=== PATIENT | male | born 1925 | race Caucasian/White ===

== ENCOUNTER 2017-05-25 18:31 | Inpatient (IN) ==
[2017-05-25] MEDS ORDERED: NS 1,000 ML IV ONE (18:57)
--- NOTE | 2017-05-25 19:00 | Emergency Department Report ---
General Adult HPI - General Chief complaint: Upper Respiratory Infection Stated complaint: cough, weakness Time Seen by Provider: 05/25/17 18:39 Source: patient Mode of arrival: ambulatory Limitations: no limitations - History of Present Illness HPI narrative: He has had some weakness and cough for the last 5 days. He lives at home in his own home. Is nephew came to check on him and decided to bring him to ER for evaluation. He had attempted to get up to the bathroom and was too weak to walk. He has not had any fever or chills that they know of. Has not had any vomiting or diarrhea. Sats on RA upon arrival are 88%. Was placed on O2 at 3 L per NC. Has history of head injury when he was a child and has some decreased mentation due to this. Onset (ago): day(s) (For the last 5 days) Severity: moderate Relieving factors: none Exacerbating factors: none Associated symptoms: cough, malaise, weakness Treatments prior to arrival: none - Related Data Home Medications Medication Instructions Recorded Confirmed No known Home medications [No home 05/25/17 05/25/17 meds] Allergies Allergy/AdvReac Type Severity Reaction Status Date / Time No Known Allergies Allergy Verified 05/25/17 18:50 Review of Systems Constitutional: Denies: fever, chills, weakness ENT: Denies: ear pain, throat pain, congestion Cardiovascular: Denies: chest pain, palpitations, dyspnea on exertion, edema Respiratory: Reports: cough. Denies: dyspnea, wheezes Gastrointestinal: Denies: abdominal pain, nausea, vomiting, diarrhea Integumentary: Denies: rash Neurological: Denies: headache, weakness, numbness, paresthesias PFSH Head injury when he was a child - Social History Smoking status: Never smoker Substance use type: does not use Alcohol intake frequency: does not drink Physical Exam - Limitations Limitations: no limitations - General General appearance: alert, in no apparent distress - Normal Exams: ENMT:: No facial trauma, nasal exudates, pharyngeal erythema, or exudates are noted Neck:: Full range of motion, without adenopathy, JVD, bruits or thyromegaly Chest/Respirations:: Clear all ced[place], with good airflow, and symmetry bilaterally Cardiovascular:: Regular rate and rhythm, without murmur or gallop, Pulses 2+ all extremities, capillary refill, <2 seconds all extremities Abdomen:: Bowel sounds positive, soft, non-tender, non-distended, no hepatosplenomegaly, masses or bruits noted Lymphatic:: No lymphadenopathy, or lymphedema noted Integumentary:: No rashes, hives, or bruising noted Neurological:: Patient is alert, and oriented Psychiatric:: Patient exhibits, appropriate attention, emotion and affect Course Vital Signs Temperature 99.8 F 05/25/17 18:36 Pulse Rate 90 05/25/17 18:36 Respiratory Rate 20 05/25/17 18:36 Blood Pressure 138/95 H 05/25/17 18:36 Pulse Oximetry 92 05/25/17 18:36 Temperature 102.2 F H 05/25/17 19:11 Pulse Rate 97 05/25/17 19:54 Respiratory Rate 18 05/25/17 20:18 Blood Pressure 108/77 05/25/17 19:54 Pulse Oximetry 88 L 05/25/17 20:18 Medical Decision Making - MDM Narrative Medical decision making narrative: He does have UTI and is influenza A positive. Is requiring O2 to maintain sats above 92%. Did discuss admission with Dr Anand and she will accept at this time. His chest xray is negative. Did give Rocephin 1G IV in ER. Lactate was noted at 2.0, procalcitonin is normal. WBC is normal as well. - Differential Diagnosis DD: pneumonia, UTI, sepsis, viral illness, dehydration - Lab Data Lab results reviewed: Yes: I reviewed the patient's lab results. Result diagrams: 05/25/17 19:25 05/25/17 19:26 Lab Results 05/25/17 05/25/17 05/25/17 Range/Units 19:25 19:25 19:26 WBC 8.8 (4.5-11.0) T/MM3 RBC 4.89 (4.50-5.90) M/MM3 Hgb 15.2 (13.5-17.5) GM/DL Hct 46.3 (41-53) % MCV 94.7 (80-100) UM3 MCH 31.1 (26-34) UUG MCHC 32.8 (31-37) GM/DL RDW Std Deviation 44.6 (36.9-50.2) FL Plt Count 162 (130-400) T/MM3 MPV 10.1 (9.4-12.4) UM3 Immature Gran % (Auto) 0.3 (0.0-0.5) % Neut % (Auto) 79.5 H (33-66) % Lymph % (Auto) 10.8 L (23-45) % Sutton % (Auto) 9.1 H (0-9.0) % Eos % (Auto) 0.0 (0-4) % Baso % (Auto) 0.3 (0-2) % Neut # (Auto) 7.0 (1.8-7.7) T/MM3 Lymph # (Auto) 1.0 (1-4.8) T/MM3 Sutton # (Auto) 0.8 (0-0.8) T/MM3 Eos # (Auto) 0.0 (0-0.5) T/MM3 Baso # (Auto) 0.0 (0-0.2) T/MM3 Abs Immat Gran (auto) 0.03 (0.00-0.03) T/MM3 Turbidity < 20 (0-20) Sodium 143 (134-144) MEQ/L Potassium 4.3 (3.6-5) MEQ/L Chloride 107 (98-107) MEQ/L Carbon Dioxide 23 (22-30) MEQ/L Anion Gap 13 (5-15) MEQ/L BUN 31.0 H (9-20) MG/DL Creatinine 1.4 (0.8-1.5) MG/DL GFR Calculation 48 BUN/Creatinine Ratio 22 (6-26) RATIO Glucose 105 (75-110) MG/DL Calculated Osmolality 282 H (261-280) MOSM/KG Calcium 8.9 (8.4-10.2) MG/DL Total Bilirubin 0.60 (0.20-1.30) MG/DL Icterus Index < 2 (0-7) AST 32 (17-59) U/L ALT 32 (21-72) U/L Alkaline Phosphatase 66 (38-126) U/L Troponin I 0.018 (0-0.12) ng/ml Total Protein 8.9 H (6.3-8.2) G/DL Albumin 4.4 (3.5-5.0) G/DL Globulin 4.5 H (2.4-3.6) G/DL Albumin/Globulin Ratio 1.0 L (1.1-2.2) RATIO Plasma Lactate 2.0 (0.6-2.2) MMOL/L Procalcitonin NG/ML Specimen Hemolysis < 15 (0-25) Ur Collection Type Urine, clean catch Urine Color Yellow (YELLOW) Urine Clarity Cloudy Urine pH 5.5 (5.0-8.0) Ur Specific [place] 1.025 (1.015-1.025) Urine Protein 1+ A (NEGATIVE) Urine Glucose (UA) Negative (NEGATIVE) Urine Ketones Trace A (NEGATIVE) Urine Occult Blood 3+ A (NEGATIVE) Urine Nitrate Positive A (NEGATIVE) Urine Bilirubin Negative (NEGATIVE) Urine Urobilinogen 0.2 (NORMAL) EU/DL Ur Leukocyte Esterase 3+ (NEGATIVE) Urine RBC 20-30 H (0-3) /HPF Urine WBC Tntc H (0-5) /HPF Urine WBC Clumps Moderate H Ur Squamous Epith Cells 20-50 Amorphous Sediment Many Urine Bacteria 2+ H (NEGATIVE) Granular Casts 5-10 Urine Mucus Present Ur Culture Indicated? Cult reflexed &setup Influenza Type A (PCR) (Negative) Influenza Type B (PCR) (Negative) 05/25/17 05/25/17 Range/Units 19:27 19:28 WBC (4.5-11.0) T/MM3 RBC (4.50-5.90) M/MM3 Hgb (13.5-17.5) GM/DL Hct (41-53) % MCV (80-100) UM3 MCH (26-34) UUG MCHC (31-37) GM/DL RDW Std Deviation (36.9-50.2) FL Plt Count (130-400) T/MM3 MPV (9.4-12.4) UM3 Immature Gran % (Auto) (0.0-0.5) % Neut % (Auto) (33-66) % Lymph % (Auto) (23-45) % Sutton % (Auto) (0-9.0) % Eos % (Auto) (0-4) % Baso % (Auto) (0-2) % Neut # (Auto) (1.8-7.7) T/MM3 Lymph # (Auto) (1-4.8) T/MM3 Sutton # (Auto) (0-0.8) T/MM3 Eos # (Auto) (0-0.5) T/MM3 Baso # (Auto) (0-0.2) T/MM3 Abs Immat Gran (auto) (0.00-0.03) T/MM3 Turbidity (0-20) Sodium (134-144) MEQ/L Potassium (3.6-5) MEQ/L Chloride (98-107) MEQ/L Carbon Dioxide (22-30) MEQ/L Anion Gap (5-15) MEQ/L BUN (9-20) MG/DL Creatinine (0.8-1.5) MG/DL GFR Calculation BUN/Creatinine Ratio (6-26) RATIO Glucose (75-110) MG/DL Calculated Osmolality (261-280) MOSM/KG Calcium (8.4-10.2) MG/DL Total Bilirubin (0.20-1.30) MG/DL Icterus Index (0-7) AST (17-59) U/L ALT (21-72) U/L Alkaline Phosphatase (38-126) U/L Troponin I (0-0.12) ng/ml Total Protein (6.3-8.2) G/DL Albumin (3.5-5.0) G/DL Globulin (2.4-3.6) G/DL Albumin/Globulin Ratio (1.1-2.2) RATIO Plasma Lactate (0.6-2.2) MMOL/L Procalcitonin 0.70 NG/ML Specimen Hemolysis (0-25) Ur Collection Type Urine Color (YELLOW) Urine Clarity Urine pH (5.0-8.0) Ur Specific [place] (1.015-1.025) Urine Protein (NEGATIVE) Urine Glucose (UA) (NEGATIVE) Urine Ketones (NEGATIVE) Urine Occult Blood (NEGATIVE) Urine Nitrate (NEGATIVE) Urine Bilirubin (NEGATIVE) Urine Urobilinogen (NORMAL) EU/DL Ur Leukocyte Esterase (NEGATIVE) Urine RBC (0-3) /HPF Urine WBC (0-5) /HPF Urine WBC Clumps Ur Squamous Epith Cells Amorphous Sediment Urine Bacteria (NEGATIVE) Granular Casts Urine Mucus Ur Culture Indicated? Influenza Type A (PCR) Positive A (Negative) Influenza Type B (PCR) Negative (Negative) - Radiology Data Radiology results reviewed: Yes: I reviewed the patient's radiology results. Chest xray: diffuse infiltrative pattern Disposition Clinical Impression: Influenza A Urinary tract infection Qualifiers: Urinary tract infection type: acute cystitis Hematuria presence: without hematuria Qualified Code(s): N30.00 - Acute cystitis without hematuria [place] 02 [place] [facility] [place] Condition: Stable Time of Disposition: 21:04 - Seen By: midlevel
[2017-05-25] MEDS: SALINE FLUSH 10ml SYRINGE IVF PRN ×2 (19:10→22:53)
[2017-05-25] MEDS ORDERED: ALBUTEROL/IPRATROPIUM 2.5mg-0.5mg/3ml NEB AEROSOL ONE (19:55)
[2017-05-25] MEDS ORDERED: CEFTRIAXONE (ER USE ONLY) 1 GM in NS 100 ML IV ONE (19:59)
[2017-05-25] MEDS ORDERED: ONDANSETRON 4 MG/2 ML INJECTION IVP PRN (21:19)
[2017-05-25] MEDS ORDERED: ACETAMINOPHEN 325 MG TABLET PO PRN (21:19)
[2017-05-25] MEDS ORDERED: HYDROCODONE/APAP 5mg/325mg TABLET PO PRN (21:19)
[2017-05-25] MEDS: NS 1,000 ML IV SCH (22:45)
--- NOTE | 2017-05-25 22:58 | History & Physical Report ---
History of Present Illness Date: 05/26/17 Chief complaint: Weakness and fall HPI: 88 yo M with PMH of MR from a head injury and lives alone presented to the ED with reports of weakness, fall and cough for 2 days. Patient's nephew is his primary career orientation teacher and found him on the floor today, he reports he was only on the floor for a few minutes. Patient denies fevers and chills at home, reports weakness and cough. He does not like to take medications and has not taken anything for his cough. He denies fever, chills, N/V and diarrhea. He was found to be hypoxic with O2 sats in the upper 80's upon arrival to the ED. He was placed on 3L NC. Patient was found to be influenza A positive and have a UTI. He was admitted to IV ABX and supportive care. Review of Systems All systems PM: 10-point ROS was reviewed, no additional remarkable complaints except PFSH Patient Stated Medical History Dementia Yes: Reported by nephew. DPOA - Social History Smoking status: Never smoker Medications Home Medications Medication Instructions Recorded Confirmed Type No known Home medications [No home 05/25/17 05/25/17 History meds] Allergies Allergy/AdvReac Type Severity Reaction Status Date / Time No Known Allergies Allergy Verified 05/25/17 18:50 Exam Vital Signs: Temperature 96.9 F 05/25/17 22:07 Pulse Rate 84 05/25/17 22:07 Respiratory Rate 16 05/25/17 22:07 Blood Pressure 109/75 05/25/17 22:07 Pulse Oximetry 92 05/25/17 22:07 Height/Weight/BMI: Height 1.83 m Weight 69.7 kg Body Mass Index 20.8 - Constitutional Present: no acute distress, cachectic - Routine Respiratory Exam Present: crackles (B/L lower lung field) - Routine Cardiovascular Exam Present: RRR. Absent: murmur - Routine Abdominal Exam Present: soft, normoactive bowel sounds, non distended. Absent: tenderness - Routine Skin Exam Present: dry, warm - Routine Neurological Exam Present: alert, CN II-XII intact, altered mental status (slow mentation) Results - Labs CBC & Chem 7: 05/26/17 04:32 05/26/17 04:32 Assessment and Plan (1) Influenza A Current visit: Yes Status: Acute (2) Urinary tract infection Current visit: Yes Status: Acute Assessment and Plan: Patient admitted for IV abx for his UTI and aggressive respiratory care. His lactic acid was 2.0 upon arrival, with no elevation in WBC's, negative procalcitonin. But he did have an elevated temp of 102 in the ED. Patient stated on Duonebs and mucinex DM for his cough. Urine CX sent. Tamiflu not started as patient is outside of the window. Will continue to monitor. Patient given ceftriaxone in the ED. will start 1gm Q24 hours for now. IVF NS 100cc/ hr. DVT Prophylaxis: SCD's Resuscitation Status: Full Code - Physician Narrative Physician: Christopher Garcia MD Narrative: 05/26/17 Jose I have independently interviewed and examined pt. Chart reviewed. Reviewed above note and concur. CC: Weakness, fall HPI: 89 y/o male presents to [facility] [place] ED secondary to weakness and fall. Has been feeling weak for about 2 days. With fall at home, this prompted ED visit. Has been having some cough recently. Not been having N/V or change in stools. Denies chest pain or pain with breathing. No palpitations. Appetite stable. In ED O2 saturation decreased at 88%. Positive for influenza A and urine showing evidence for UTI. Lactate elevated at 2 and initial temperature elevated at 102.2. With patient showing evidence for severe sepsis syndrome (Temp elevation and elevated lactate secondary to urinary source) coupled with his acute influenza, patient admitted to [facility] [place] for further treatment. 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 MEDS: none reported Shx: Resides in [facility]. Nephew caregiver. Nonsmoker. Ned[facility] PCP FHx: Noncontributory. Patient knows of no familial diseases. Knows his parents young (at age 65 and 66), but not sure why. ROS: as in HPI. 10 point ROS discussed with patient and negative (likely dementia limits) - does state he's 'doing good for his age.' Exam GEN: WDWNWM awake and alert HEENT: NC/AT PERRLA EOMI MMM Neck: supple, midline, no tracheal deviation CV: regular Lungs: decreased bilaterally; no distress on RA AB: soft nt/nd +BS EXT: clubbing of fingernails bilaterally. Radial pulses equal and normal. No lower ext edema. SCD in place NEURO: CN II-XII intact. No focal motor deficits Psych: awake alert appropriate. Not agitated or restless SKIN: warm and dry. 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 Rocephin for urinary coverage - check urine C/S. Tamiflu not initiated as patient thought to be outside of window of treatment based on when symptoms began. IVF of NS initiate for hydration due to severe sepsis. Supplemental O2 to maintain saturations. Obtain ECHO due to potential pulm edema on CXR. SCD for DVT prevention. Will need PT/OT to help increase strength and functional abilities. Monitor lab. Care to return to Dr Montenegro at time of discharger from [facility] [place]. Sepsis Assessment - Evaluation SIRS Criteria: temperature > 100.9 Severe Sepsis: lactate > 2.0 mg/dL Hospital Course Summary Disclaimer: The visit summary below is not to be considered part of the above Progress Note. 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 Rocephin for urinary coverage - check urine C/S. Tamiflu not initiated as patient thought to be outside of window of treatment based on when symptoms began. Mucinex and DuoNeb for pulmonary toilet and due to cough. IVF of NS initiate for hydration due to severe sepsis. Supplemental O2 to maintain saturations. SCD for DVT prevention. Monitor lab. Care to return to Dr Montenegro at time of discharger from [facility] [place]. 05/26/17 Urine showing early growth. O2 needs variable - on RA at time, but needing O2 at times; no respiratory distress. CXR report with possible edema - will check echo. Decrease IVF to 50cc/hr. Will need PT/OT to help increase strength and functional abilities.
[2017-05-25] MEDS: GUAIFENESIN/D-METHORPHAN 600mg/30mg TABLET PO SCH (23:32)
[2017-05-26] MEDS: ALBUTEROL/IPRATROPIUM 2.5mg-0.5mg/3ml NEB AEROSOL SCH ×4 (06:43→20:07)
[2017-05-26 06:45] VITALS: BMI 19.2
[2017-05-26] MEDS: GUAIFENESIN/D-METHORPHAN 600mg/30mg TABLET PO SCH ×2 (08:22→20:24)
[2017-05-26] MEDS: NS 1,000 ML IV SCH ×2 (08:22→11:52)
--- NOTE | 2017-05-26 08:37 | XRay Report ---
Indication: dyspnea PROCEDURE: XR chest 2V: Encounter: Initial Comparison: None. Findings: There is cardiomegaly and pulmonary vascular congestion with mild interstitial pulmonary edema possibly over estimated by the expiratory technique. There may be trace bilateral pleural effusions. Trachea is midline. No subdiaphragmatic free air. Impression: [id number] CHF possibly over estimated by the expiratory technique. .
[2017-05-26] MEDS ORDERED: BISACODYL 10 MG SUPPOSITORY RECTALLY PRN (11:41)
[2017-05-26] MEDS ORDERED: POLYETHYL GLYCOL 3350 17gm PACKET PO PRN (11:41)
[2017-05-26] MEDS: CEFTRIAXONE 1 G in NS 100 ML IV SCH (20:24)
[2017-05-27] MEDS: NS 1,000 ML IV SCH ×2 (01:28→21:34)
[2017-05-27] MEDS: ALBUTEROL/IPRATROPIUM 2.5mg-0.5mg/3ml NEB AEROSOL SCH ×4 (07:23→19:00)
[2017-05-27] MEDS: GUAIFENESIN/D-METHORPHAN 600mg/30mg TABLET PO SCH ×2 (08:26→20:43)
--- NOTE | 2017-05-27 15:09 | Progress Note ---
- Date 05/27/17 Subjective: Mr. Collins is seen today in follow up. He appears frail and ill. He reports that he is wanting to return home today. Does continue to appear SOA today. Persistent cough. Objective Vital signs: Temperature 97.2 F 05/27/17 08:31 Pulse Rate 75 05/27/17 08:31 Respiratory Rate 16 05/27/17 14:39 Blood Pressure 110/65 05/27/17 08:31 Pulse Oximetry 92 05/27/17 14:39 Height/Weight/BMI: Height 1.91 m Weight 72.5 kg Body Mass Index 19.2 - Constitutional Present: mild distress, thin, cooperative - Routine HEENT Exam Eye: Present: EOMI, PERRL ENT: Present: mucous membranes moist - Routine Respiratory Exam Present: wheezes (Scattered expiratory wheezes. ), diminished air movement. Absent: respiratory distress - Routine Cardiovascular Exam Present: RRR, S1, S2, no murmur - Routine Abdominal Exam Present: soft, normoactive bowel sounds, non distended, non tender - Routine Extremities Exam Present: no edema, non tender - Routine Musculoskeletal Exam Musculoskeletal: Present: moving extremities well - Routine Skin Exam Present: intact, dry, warm - Routine Neurological Exam Present: alert, moving all extremities - Routine Psychiatric Exam Present: cooperative Results - Labs CBC & Chem 7: 05/27/17 02:56 05/27/17 02:56 - Impressions CXR reviewed. Echo is pending. 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 Add IV Solu-Medrol, Continue DuoNeb. Add Pulmicort. No Tamiflu due to out of treatment window. Add acapella valve. PRN O2. Continue Ceftriaxone for UTI. Will continue gentle IVF due to sepsis. Repeat CXR in AM. Await EF. Consult PT. DC planning. May need rehab or SNU prior to dismissal. DVT Prophylaxis: SCD's Resuscitation Status: Full Code - Physician Narrative Physician: Christopher Garcia MD Narrative: Date: 05/27/17 Time: 1819 Have independently interviewed and examined pt. Chart reviewed. Case discussed with my CONTROL SYSTEMS SPECIALIST. Care plan developed with my supervision; agree with above. Doing okay this evening. Feels 'I'm doing okay for the age I am.' Breathing feels alright-not reporting SOA or congestion. Denies pain with breathing. Eating 'okay;' reports he tries not to 'overeat.' No ab pain or nausea. Did work with therapy today. Vitals: O2 needs variable during day - needing O2 at times, on RA at times. Lungs: decreased, shallow breathing; no distress CV regular MSE: awake alert, pleasant. Plan: Continue with Rocephin for urinary coverage - no organism isolated from culture. Neb treatment and Solu-Medrol added-watch for agitation with steroids. Encourage oral intake. Encourage activities and therapy. Monitor lab. ECHO pending-hope for report on Monday. Hospital Course Summary Disclaimer: The visit summary below is not to be considered part of the above Progress Note. 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 Rocephin for urinary coverage - check urine C/S. Tamiflu not initiated as patient thought to be outside of window of treatment based on when symptoms began. Mucinex and DuoNeb for pulmonary toilet and due to cough. IVF of NS initiate for hydration due to severe sepsis. Supplemental O2 to maintain saturations. SCD for DVT prevention. Monitor lab. Care to return to Dr Montenegro at time of discharger from [facility] [place] 05/26/17 Urine showing early growth. O2 needs variable - on RA at time, but needing O2 at times; no respiratory distress. CXR report with possible edema - will check echo. Decrease IVF to 50cc/hr. Will need PT/OT to help increase strength and functional abilities. 05/27/17 15:14 He remains wheezy, SOA. Add IV solumedrol, Continue duoneb. Add pulmicort. No Tamiflu due to out of treatment window. Add acapella valve. PRN O2. Continue Ceftriaxone for UTI. Will continue gentle IVF due to sepsis. Repeat CXR in AM. Await EF. Consult PT. DC planning. May need rehab or SNU prior to dismissal.
[2017-05-27] MEDS: METHYLPREDNISOLONE SOD SUCC 125mg/2ml INJECTION IVP SCH (17:09)
[2017-05-27] MEDS: BUDESONIDE INH.SOLN 0.5mg/2ml NEB AEROSOL SCH (19:00)
[2017-05-27] MEDS: CEFTRIAXONE 1 G in NS 100 ML IV SCH (20:42)
[2017-05-28] MEDS: METHYLPREDNISOLONE SOD SUCC 125mg/2ml INJECTION IVP SCH ×3 (00:05→17:23)
[2017-05-28] MEDS: SALINE FLUSH 10ml SYRINGE IVF PRN ×3 (00:18→21:01)
[2017-05-28] MEDS: ALBUTEROL/IPRATROPIUM 2.5mg-0.5mg/3ml NEB AEROSOL SCH ×4 (07:40→20:10)
[2017-05-28] MEDS: GUAIFENESIN/D-METHORPHAN 600mg/30mg TABLET PO SCH ×2 (08:53→20:58)
--- NOTE | 2017-05-28 11:43 | Progress Note ---
- Date 05/28/17 Subjective: Mr. Collins is seen today. He is alert, a bit tearful. Doesn't speak much, but I suspect he is a bit confused. He is on O2, but cannula is in eye- repositioned. He appears less SOA today. Chart is reviewed for collateral information. He does deny any pain. Objective Vital signs: Temperature 96.4 F L 05/28/17 07:00 Pulse Rate 51 L 05/28/17 07:00 Respiratory Rate 20 05/28/17 07:40 Blood Pressure 131/69 05/28/17 07:00 Pulse Oximetry 90 05/28/17 07:40 Height/Weight/BMI: Height 1.91 m Weight 72.2 kg Body Mass Index 19.2 - Constitutional Present: no acute distress, thin - Routine HEENT Exam Head: Present: normocephalic, atraumatic Eye: Present: EOMI, PERRL ENT: Present: mucous membranes moist - Routine Respiratory Exam Present: decreased breath sounds, wheezes (faint expiratory), diminished air movement - Routine Cardiovascular Exam Present: RRR, S1, S2, no murmur - Routine Abdominal Exam Present: soft, normoactive bowel sounds, non distended, non tender - Routine Extremities Exam Present: no edema, non tender - Routine Skin Exam Present: intact, dry, warm - Routine Neurological Exam Present: alert, moving all extremities - Routine Psychiatric Exam Present: cooperative Comments: A bit withdrawn, quiet. Results - Labs CBC & Chem 7: 05/28/17 04:18 05/28/17 04:18 - Imaging and Cardiology Chest x-ray Status: image reviewed by me Additional comments: Possible early right infiltrate. Atelectasis. Assessment and Plan (1) Influenza A Current visit: Yes Status: Acute (2) Urinary tract infection Current visit: Yes Status: Acute Assessment and Plan: Assessment: Severe sepsis - temp elevation, HR >90 in ED, elevated lactate UTI Influenza type A Acute hypoxic respiratory insufficiency Possible pulmonary edema Generalized weakness Fall without randall injury MR secondary to head injury Dementia Plan: 05/28/17 Wheezing, SOA is improving. Continue IV Solu-Medrol, DuoNeb, Pulmicort. No Tamiflu due to out of treatment window. Encourage acapella valve. PRN O2. Continue Ceftriaxone for UTI, possible early infiltrate. Some mild bandemia today, may be due to addition of steroids. Will continue gentle IVF due to sepsis. CXR reviewed. Echo is pending. Consult PT. DC planning. May need rehab or SNU prior to dismissal. [place] need more assistance. Difficult to determine mentation as he is very quiet. Will order OT ENOC. DVT Prophylaxis: SCD's Resuscitation Status: Full Code - Time spent with patient Time with patient PN: 25 minutes - Physician Narrative Physician: Christopher Garcia MD Narrative: Date: 05/28/17 Time: 1348 Have independently interviewed and examined pt. Chart reviewed. Case discussed with my SOCIAL WORKER DELINQUENCY PREVENTION. Care plan developed with my supervision; agree with above. Doing okay today. Breathing well-does have occasional cough. Not having pain with breathing. Eating well. Nurses charting stool output. No f/c. Lungs: decreased, upper airway noises. No respiratory distress CV: regular MSE : awake alert, pleasant to visit with Plan: Will continue Rocephin for antimicrobial coverage. Can d/c IVF as taking oral in well. Encourage activities. Likely able to discharge soon. Hospital Course Summary Disclaimer: The visit summary below is not to be considered part of the above Progress Note. 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 Rocephin for urinary coverage - check urine C/S. Tamiflu not initiated as patient thought to be outside of window of treatment based on when symptoms began. Mucinex and DuoNeb for pulmonary toilet and due to cough. IVF of NS initiate for hydration due to severe sepsis. Supplemental O2 to maintain saturations. SCD for DVT prevention. Monitor lab. Care to return to Dr Montenegro at time of discharger from [facility] [place]. 05/26/17 Urine showing early growth. O2 needs variable - on RA at time, but needing O2 at times; no respiratory distress. CXR report with possible edema - will check echo. Decrease IVF to 50cc/hr. Will need PT/OT to help increase strength and functional abilities. 05/27/17 15:14 He remains wheezy, SOA. Add IV solumedrol, Continue duoneb. Add pulmicort. No Tamiflu due to out of treatment window. Add acapella valve. PRN O2. Continue Ceftriaxone for UTI. Will continue gentle IVF due to sepsis. Repeat CXR in AM. Await EF. Consult PT. DC planning. May need rehab or SNU prior to dismissal. 05/28/17 11:44 05/28/17 Wheezing, SOA is improving. Continue IV Solu-Medrol, DuoNeb, Pulmicort. No Tamiflu due to out of treatment window. Encourage acapella valve. PRN O2. Continue Ceftriaxone for UTI, possible early infiltrate. Some mild bandemia today, may be due to addition of steroids. Will continue gentle IVF due to sepsis. CXR reviewed. Echo is pending. Consult PT. DC planning. May need rehab or SNU prior to dismissal. [place] may need more assistance. Difficult to determine mentation as he is very quiet. Will order OT ENOC.
[2017-05-28] MEDS: BUDESONIDE INH.SOLN 0.5mg/2ml NEB AEROSOL SCH ×2 (12:33→20:10)
[2017-05-28] MEDS: NS 1,000 ML IV SCH (14:00)
--- NOTE | 2017-05-28 15:29 | XRay Report ---
INDICATION: SOA, cough PROCEDURE: CHEST 2-VIEWS UPRIGHT (PA & LAT) Encounter: Initial COMPARISON: May 25, 2017 FINDINGS: Hazy airspace disease in the right lower lobe. Remaining lung cedeno are grossly clear. No pneumothorax. Trace right pleural effusion. Heart size and the stomach contours are stable with a tortuous thoracic aorta ectatic. Pulmonary vascularity appears normal. Impression: Right basilar airspace disease could be due to atelectasis, pneumonia or aspiration. .
[2017-05-28] MEDS: CEFTRIAXONE 1 G in NS 100 ML IV SCH (20:17)
[2017-05-29] MEDS: METHYLPREDNISOLONE SOD SUCC 125mg/2ml INJECTION IVP SCH ×3 (00:33→18:50)
[2017-05-29] MEDS: ALBUTEROL/IPRATROPIUM 2.5mg-0.5mg/3ml NEB AEROSOL SCH ×3 (07:11→17:14)
[2017-05-29] MEDS: BUDESONIDE INH.SOLN 0.5mg/2ml NEB AEROSOL SCH (07:11)
[2017-05-29 07:53] VITALS: PULSE 66
[2017-05-29] MEDS: GUAIFENESIN/D-METHORPHAN 600mg/30mg TABLET PO SCH (08:05)
--- NOTE | 2017-05-29 11:40 | Progress Note ---
- Date 05/29/17 Subjective: Mr Collins is seen today in follow up. He states that he is feeling better. He continued on room air without respiratory distress. He denies having pain or GI complaints. Objective Vital signs: Temperature 96.7 F L 05/29/17 07:52 Pulse Rate 66 05/29/17 07:52 Respiratory Rate 18 05/29/17 07:52 Blood Pressure 133/87 05/29/17 07:52 Pulse Oximetry 92 05/29/17 07:52 Height/Weight/BMI: Height 1.91 m Weight 72.8 kg Body Mass Index 19.2 - Constitutional Present: no acute distress, well nourished, well developed - Routine HEENT Exam Eye: Present: EOMI ENT: Present: mucous membranes moist, dentition normal - Routine Respiratory Exam Present: CTA bilaterally. Absent: wheezes - Routine Cardiovascular Exam Present: RRR, S1, S2. Absent: murmur - Routine Abdominal Exam Present: soft, normoactive bowel sounds, non distended. Absent: tenderness - Routine Extremities Exam Present: normal capillary refill - Routine Back/Spine/Pelvis Exam Back/Spine: Present: full ROM - Routine Skin Exam Present: dry, warm - Routine Neurological Exam Present: alert, oriented X3, CN II-XII intact - Routine Lymphatic Exam Lymphatic: Absent: adenopathy - Routine Psychiatric Exam Present: normal affect Results - Labs CBC & Chem 7: 05/28/17 04:18 05/28/17 04:18 Assessment and Plan (1) Influenza A Current visit: Yes Status: Acute (2) Urinary tract infection Current visit: Yes Status: Acute Assessment and Plan: Assessment: Severe sepsis - temp elevation, HR >90 in ED, elevated lactate UTI Influenza type A Acute hypoxic respiratory insufficiency Possible pulmonary edema Generalized weakness Fall without randall injury MR secondary to head injury Dementia Plan: 05/29 Breathing improved. Continue IV Solu-Medrol, DuoNeb, Pulmicort. Continue Rocephin as urine culture does show mixed avelina. Overall improving. Consult placed for PT and OT to evaluate strength and safety. Patient would like to return home or he is independent with assistance from his DPOA, nephew Narciso Hopeful discharge in the near future DVT Prophylaxis: SCD's Resuscitation Status: Full Code - Physician Narrative Physician: Christopher Garcia MD Narrative: Date: 05/29/17 Time: 1500 I have independently interviewed and examined pt prior to discharge. Chart reviewed. Case discussed with CM and my OFFICE COMMUNICATION PROFESSOR. Care plan developed with my supervision; agree with above. Doing well today. Sitting up in chair. No f/c. Eating and drinking well. No ab pain or nausea. Urinating well. Breathing doing well-not feeling SOA or congested, no pain with breathing or cough. Lungs: decreased bilaterally CV: regular AB: soft nt/nd EXT: no edema MSE: awake alert appropriate Plan: With clinical and physical improvement, can discharge to home. Will have home health to follow. ECHO pending-can be following up by Dr Montenegro in clinic. See orders for discharge details. Hospital Course Summary Disclaimer: The visit summary below is not to be considered part of the above Progress Note. 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 Rocephin for urinary coverage - check urine C/S. Tamiflu not initiated as patient thought to be outside of window of treatment based on when symptoms began. Mucinex and DuoNeb for pulmonary toilet and due to cough. IVF of NS initiate for hydration due to severe sepsis. Supplemental O2 to maintain saturations. SCD for DVT prevention. Monitor lab. Care to return to Dr Montenegro at time of discharger from [facility] [place] 05/26/17 Urine showing early growth. O2 needs variable - on RA at time, but needing O2 at times; no respiratory distress. CXR report with possible edema - will check echo. Decrease IVF to 50cc/hr. Will need PT/OT to help increase strength and functional abilities. 05/27/17 15:14 He remains wheezy, SOA. Add IV solumedrol, Continue duoneb. Add pulmicort. No Tamiflu due to out of treatment window. Add acapella valve. PRN O2. Continue Ceftriaxone for UTI. Will continue gentle IVF due to sepsis. Repeat CXR in AM. Await EF. Consult PT. DC planning. May need rehab or SNU prior to dismissal. 05/28/17 11:44 05/28/17 Wheezing, SOA is improving. Continue IV Solu-Medrol, DuoNeb, Pulmicort. No Tamiflu due to out of treatment window. Encourage acapella valve. PRN O2. Continue Ceftriaxone for UTI, possible early infiltrate. Some mild bandemia today, may be due to addition of steroids. Will continue gentle IVF due to sepsis. CXR reviewed. Echo is pending. Consult PT. DC planning. May need rehab or SNU prior to dismissal. [place]- may need more assistance. Difficult to determine mentation as he is very quiet. Will order OT ENOC. Plan: 05/29 Breathing improved. Continue IV Solu-Medrol, DuoNeb, Pulmicort. Continue Rocephin as urine culture does show mixed avelina. Overall improving. Consult placed for PT and OT to evaluate strength and safety. Patient would like to return home or he is independent with assistance from his EMILI, esthela Stuart Hopeful discharge in the near future
--- NOTE | 2017-05-29 14:12 | Discharge Summary ---
Discharge Information Date of admission: 05/25/17 22:02 Anticipated date of discharge: 05/29/17 Attending Physician: Christopher Garcia MD Primary care physician: Flaquito Montenegro DO Consults: None - Discharge Diagnosis (1) Influenza A Status: Acute (2) Urinary tract infection Status: Acute Severe sepsis - temp elevation, HR >90 in ED, elevated lactate UTI- resolved- was contamination on urine culture Influenza type A Acute hypoxic respiratory insufficiency Possible pulmonary edema Generalized weakness Fall without randall injury MR secondary to head injury Dementia - Procedures Procedures: None - Laboratory Labs: 05/28/17 04:18 05/28/17 04:18 - Microbiology Microbiology 05/25/17 19:31 Peripheral/Iv Start Blood Culture - Preliminary No Growth After 3 Days 05/25/17 19:27 Peripheral/Iv Start Blood Culture - Preliminary No Growth After 3 Days 05/25/17 19:25 Urine, Voided (Cc/notcc) Urine Culture - Final Mixed Bacterial Avelina Present -No further testing will be performed - Radiology Radiology: 05/25/17-chest [id number]: [id number] CHF possibly over estimated by the expiratory technique. 05/28/17-chest [id number]: Right basilar airspace disease could be due to atelectasis, pneumonia or aspiration. Echocardiogram-pending - Pathology None History of Present Illness HPI: 88 yo M with PMH of MR from a head injury and lives alone presented to the ED with reports of weakness, fall and cough for 2 days. Patient's nephew is his primary rn transitional care and found him on the floor today, he reports he was only on the floor for a few minutes. Patient denies fevers and chills at home, reports weakness and cough. He does not like to take medications and has not taken anything for his cough. He denies fever, chills, N/V and diarrhea. He was found to be hypoxic with O2 sats in the upper 80's upon arrival to the ED. He was placed on 3L NC. Patient was found to be influenza A positive and have a UTI. He was admitted to IV ABX and supportive care. Objective Vital signs: Temperature 96.7 F L 05/29/17 07:52 Pulse Rate 66 05/29/17 07:52 Respiratory Rate 18 05/29/17 07:52 Blood Pressure 133/87 05/29/17 07:52 Pulse Oximetry 92 05/29/17 07:52 Height/Weight/BMI: Height 1.91 m Weight 72.8 kg Body Mass Index 19.2 - Constitutional Present: no acute distress, well nourished, well developed - Routine HEENT Exam Eye: Present: EOMI ENT: Present: mucous membranes moist, dentition normal - Routine Respiratory Exam Present: diminished air movement (bilateral bases). Absent: wheezes - Routine Cardiovascular Exam Present: RRR, S1, S2. Absent: murmur - Routine Abdominal Exam Present: soft, normoactive bowel sounds, non distended. Absent: tenderness - Routine Extremities Exam Present: full ROM - Routine Skin Exam Present: intact, dry, warm - Routine Neurological Exam Present: alert, oriented X3, CN II-XII intact - Routine Lymphatic Exam Lymphatic: Absent: adenopathy - Routine Psychiatric Exam Present: normal affect, cooperative Hospital Course This is a general summary of the patient's hospital course. For more details refer to the complete medical record. Hospital course: 05/25/17 Assessment Severe sepsis - temp elevation, HR>90 in ED, elevated lactate UTI Influenza type A Acute hypoxic respiratory insufficiency Possible pulmonary edema Generalized weakness Fall without randall injury MR secondary to head injury Dementia Plan Inpatient admission for treatment of severe sepsis - anticipate greater than 2 midnights of care needed. Rocephin for urinary coverage - check urine C/S. Tamiflu not initiated as patient thought to be outside of window of treatment based on when symptoms began. Mucinex and DuoNeb for pulmonary toilet and due to cough. IVF of NS initiate for hydration due to severe sepsis. Supplemental O2 to maintain saturations. SCD for DVT prevention. Monitor lab. Care to return to Dr Montenegro at time of discharger from [facility] [place]. 05/26/17 Urine showing early growth. O2 needs variable - on RA at time, but needing O2 at times; no respiratory distress. CXR report with possible edema - will check echo. Decrease IVF to 50cc/hr. Will need PT/OT to help increase strength and functional abilities. 05/27/17 15:14 He remains wheezy, SOA. Add IV solumedrol, Continue duoneb. Add pulmicort. No Tamiflu due to out of treatment window. Add acapella valve. PRN O2. Continue Ceftriaxone for UTI. Will continue gentle IVF due to sepsis. Repeat CXR in AM. Await EF. Consult PT. DC planning. May need rehab or SNU prior to dismissal. 05/28/17 11:44 05/28/17 Wheezing, SOA is improving. Continue IV Solu-Medrol, DuoNeb, Pulmicort. No Tamiflu due to out of treatment window. Encourage acapella valve. PRN O2. Continue Ceftriaxone for UTI, possible early infiltrate. Some mild bandemia today, may be due to addition of steroids. Will continue gentle IVF due to sepsis. CXR reviewed. Echo is pending. Consult PT. DC planning. May need rehab or SNU prior to dismissal. [place]- may need more assistance. Difficult to determine mentation as he is very quiet. Will order OT ENOC. Plan: 05/29- Discharge Overall Breathing improved currently on room air. Will send patient home on 4. Additional days of prednisone 10 milligrams daily for pulmonary inflammation. Rocephin is discontinued today as urine culture does reveal mixed avelina. PT and OT did evaluate patient today and recommend home with home health. Did speak with patient's DPOA, his nephew Narciso. He is involved and helps patient routinely. Plan will be to discharge patient home. It is recommended that he follow-up with his primary care provider, Dr. Montenegro in one week. Discharged in stable condition Time spent with patient: discharge greater than 30 minutes Discharge Plan - Discharge Disposition Discharge Date: 05/29/17 Disposition: 01 Discharged Home, Self-Care *Condition: Stable Reason For Visit (Visit label in EMR): UTI, Influenza A - Discharge Medications *Discharge Medications: New Acetaminophen [Tylenol] 325 - 650 mg PO Q5H PRN tab PRN Reason: Discomfort Guaifenesin/Dm [Mucinex Dm] 1 tab PO BID tab predniSONE [Prednisone] 10 mg PO DAILY #4 tab - Discharge Packet/Instructions *Diet: Regular diet *Activity: Activity as tolerated *Pain Management/Treatment: Tylenol as needed for pain *Wound Care: None Additional Instructions: Use Mucinex OTC as needed for secretions. Tylenol for pain control. Recommend home health to assist with strengthening *Expected Signs/Symptoms: Improvement in strength *Notify Physician if: Fever, Chills, shortness of breath or chest pain *During Business Hours Contact: Contact Dr Montenegro *After Business Hours Contact: Alycia oncalejandro physician *Pending Lab/Results: No Pending Lab - Referrals/Follow Up *Referrals/Follow Up: Flaquito Montenegro, [Family Provider] - (Please schedule follow-up appointment for 1 week) - Patient Handouts Patient Handouts: Influenza (GEN) Physician Narrative - Narrative Attestation Narrative: Date: 05/29/17 Time: 1514 I have independently interviewed and examined patient prior to discharge. See my progress note from today for details. Medically stable for discharge to home.
[2017-05-29 17:07] VITALS: BP 123/78; TEMP 96.9; O2SAT 93
[2017-05-29 17:20] VITALS: RESP 20
--- NOTE | 2017-05-30 12:58 | Echocardiogram ---
DATE OF STUDY 05/26/2017 INDICATIONS Pulmonary edema. TECHNICAL QUALITY Technically good 2D, M-mode, Doppler echocardiographic images were submitted for interpretation. FINDINGS: Left-sided cardiac chamber measurements are normal. Left atrial size appears to be upper-normal range. RV appears dilated and hypokinetic. Aortic root diameter measurement of 3.9 cm is mildly increased. 2. LEFT VENTRICLE: Wall thickness is normal. Wall motion analysis is normal. The left ventricle is hyperdynamic. EF is estimated about 70%-75%. Diastolic function assessment shows equalization of E/A ratio of 1.0, E/e' ratio of 7.4 suggestive of preserved diastolic function. 3. VALVES: Aortic and mitral valve exhibit mild sclerotic changes, appropriate for age, normal valve excursion. Tricuspid valve structure and motion appear normal, normal valve excursion. 4. DOPPLER: Mild mitral regurgitation. Nroc-xj-nycbkcks aortic regurgitation (2+, associated with two separate jets). Mild tricuspid regurgitation. Systolic PA pressure estimated at 34 mmHg. Pressure halftime measured 404 milliseconds. Mean gradient across the aortic valve is 6 mmHg only with a peak flow velocity of 1.8 m/sec. 5. No evidence of pericardial effusion, intracardiac masses, thrombi, vegetations or shunts. IMPRESSION 1. Normal LV size and systolic function. EF 75% with normal diastolic function parameters. 2. RV enlargement with hypokinesis. 3. Left atrial size upper-normal range by measurement, visually mildly enlarged. 4. Gbzl-ue-dnbwtfhn aortic regurgitation. 5. Mild mitral regurgitation. 6. Mild tricuspid regurgitation. 7. Systolic PA pressure is normal. MTDD
== END 2017-05-29 17:30 | disposition home or self-care (01) | DRG 872 ==
LOC: ED 18:31 → MED 21:45
PROVIDERS: ADMIT Internal Medicine; ATTEND Hospitalist